=== PATIENT | male | born 1990 | race Caucasian/White ===

== ENCOUNTER 2018-02-02 19:49 | Emergency (ER) | payer SELFPAY ==
--- NOTE | 2018-02-02 22:21 | ED Physician Documentation ---
PD HPI LOWER EXT INJURY - Stated complaint Stated Complaint: L KNEE SWELLING - Chief complaint Chief Complaint: Ext Problem - History obtained from History obtained from: Patient - History of Present Illness PD HPI LOW EXT INJURY LOCATION: Left, Knee Type of injury: Other (had gradual onset and persistence of left knee swelling and tenderness for past 1-2 months. 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 No punctures nor direct wound.). No: Fall, Twist Where injury occurred: Work Timing - onset: How many months ago (1-2) Timing - duration: Months Timing - details: Abrupt onset, Still present Improved by: No: Rest, Ice Worsened by: Moving, Palpating, Other (kneeling) Associated symptoms: Swelling (in front of knee). No: Weakness, Numbness Similar symptoms before: Has not had sx before (had knee pains right knee when teenager, for couple of years.) Recently seen: Not recently seen Review of Systems Constitutional: denies: Fever, Chills, Myalgias Skin: denies: Rash, Lesions, Abrasion (s), Laceration (s) Neurologic: denies: Focal weakness, Numbness PD PAST MEDICAL HISTORY - Past Medical History Cardiovascular: None Respiratory: None Neuro: None Endocrine/Autoimmune: None GI: None : None HEENT: None Psych: None Musculoskeletal: None Derm: None - Past Surgical History Past Surgical History: No - Present Medications Home Medications: Ambulatory Orders Medication Instructions Recorded Confirmed Dexamethasone [Decadron] 4 mg PO DAILY #5 tablet 02/02/18 HYDROcod/ACETAM 5/325 [[place] 5/325] 1 tab PO Q6H PRN #15 tablet 02/02/18 - Allergies Allergies/Adverse Reactions: Allergies Allergy/AdvReac Type Severity Reaction Status Date / Time No Known Drug Allergies Allergy Verified 02/02/18 19:54 - Social History Does the pt smoke?: Yes Smoking Status: Current every day smoker Does the pt drink ETOH?: No Does the pt have substance abuse?: No - Immunizations Immunizations are current?: Yes - POLST Patient has POLST: No PD ED PE NORMAL - Vitals Vital signs reviewed: Yes - General General: Alert and oriented X 3, No acute distress, Well developed/nourished - Derm Derm: Normal color, Warm and dry - Extremities Extremities: No edema, No calf tenderness / cord, Other (left prepatellar/infrapatellar area with focal area of fluid anteriorly. No joint effusion. Knee without pain on ligament stress testing. There is no skin lesion nor redness/warmth in front of knee. exam c/w inflammatory bursitis. Generous b ursal effusion present. ) - Neuro Neuro: Alert and oriented X 3, No motor deficit, No sensory deficit, Normal speech Results - Vitals Vitals: Oxygen O2 Source Room air Procedures - General procedure General procedure: cleansed skin over front of left knee with antiseptic and then local anesth with lido 1% with epi. Then drained bursa of 12 ml of clear fluid using 18g needle. PD MEDICAL DECISION MAKING - ED course Complexity details: considered differential (no redness nor tenderness, but has persistent effusion c/w bursitis inflammatory. I did drain 12 ml of clear fluid from it. ), d/w patient - Sepsis Event Vital Signs: Oxygen O2 Source Room air Departure - Departure Disposition: 01 Home, Self Care Clinical Impression: Prepatellar bursitis Qualifiers: Laterality: left Qualified Code(s): M70.42 - Prepatellar bursitis, left knee Condition: Stable Record reviewed to determine appropriate education?: Yes Instructions: ED Bursitis Follow-Up: [facility] [Provider Group] Prescriptions: Dexamethasone [Decadron] 4 mg PO DAILY #5 tablet HYDROcod/ACETAM 5/325 [[place] 5/325] 1 tab PO Q6H PRN #15 tablet PRN Reason: Pain Comments: Use some ibuprofen or naproxen twice daily at least for the next 7-10 days. Neoprene knee brace or Tom wrap to the area to reduce swelling. Try to minimize kneeling onto the area. Decadron steroid anti-inflammatory daily for 5 days as well. Add Tylenol or hydrocodone if needed for pain. Recheck if not better over the next week or so. Discharge Date/Time: 02/02/18 23:25
[2018-02-02] MEDS ORDERED: DEXAMETHASONE 10 MG/ML VIAL PO STA (22:47)
[2018-02-02] MEDS ORDERED: HYDROcod/ACETAM 5/325 MG TABLET PO STA (22:47)
[2018-02-02 22:59] VITALS: BP 113/76
== END 2018-02-02 23:25 | disposition home or self-care (01) ==
LOC: ED 19:49
DX: M70.42 Prepatellar bursitis, left knee (principal); F17.200 Nicotine dependence, unspecified, uncomplicated
CPT/HCPCS: 27301; 99283; A9270

== ENCOUNTER 2018-09-14 14:59 | Outpatient (CLI) | payer MEDICAID | END 2018-09-14 15:00 | disposition critical access hospital (66) | LOC: EMS 14:59 | PROVIDERS: ATTEND Surgery | DX: S06.9X1A Unspecified intracranial injury with loss of consciousness of 30 minutes or less, initial encounter (principal); M25.552 Pain in left hip; M25.511 Pain in right shoulder; V22.4XXA Motorcycle driver injured in collision with two- or three-wheeled motor vehicle in traffic accident, initial encounter | CPT/HCPCS: A0425; A0427; A0999 ==

== ENCOUNTER 2018-09-14 15:28 | Emergency (ER) | payer MEDICAID ==
[2018-09-14] MEDS ORDERED: SODIUM CHLORIDE 0.9% 1,000 ML IV ONE ×2 (15:32→17:46)
[2018-09-14] MEDS ORDERED: HYDROmorphone 1 MG/ML CARPUJECT IVP STA ×2 (15:32→15:53)
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
[2018-09-14 15:50] LABS: BASOPHILS % (AUTO) 0.2 %; EOSINOPHILS # (AUTO) 0.1 10^3/uL (0.0-0.7); EOSINOPHILS % (AUTO) 0.6 %; HGB - HEMOGLOBIN 15.6 g/dL (14.0-18.0); LYMPHOCYTES # (AUTO) 3.2 10^3/uL (1.5-3.5); LYMPHOCYTES % (AUTO) 15.2 %; MEAN CORPUSCULAR HEMOGLOBIN 28.4 pg (27.0-31.0); MEAN CORPUSCULAR HGB CONC 33.8 g/dL (32.0-36.0); MEAN CORPUSCULAR VOLUME 83.9 fL (80.0-94.0); MEAN PLATELET VOLUME 8.1 fL (7.4-11.4); MONOCYTES # (AUTO) 0.9 10^3/uL (0.0-1.0); MONOCYTES % (AUTO) 4.4 %; NEUTROPHILS # (AUTO) 16.6 10^3/uL (1.5-6.6); NEUTROPHILS % (AUTO) 79.6 %; PLT - PLATELET COUNT 252 10^3/uL (130-450); RED BLOOD COUNT 5.49 10^6/uL (4.70-6.10); RED CELL DISTRIBUTION WIDTH 13.1 % (12.0-15.0); WHITE BLOOD COUNT 20.8 x10^3/uL (4.8-10.8)
[2018-09-14 15:56] LABS: INR 1.1 (0.8-1.2); PT - PROTHROMBIN TIME 12.9 secs (9.9-12.6)
[2018-09-14 16:02] LABS: ALBUMIN 4.4 g/dL (3.2-5.5); ALBUMIN/GLOBULIN RATIO 1.3 (1.0-2.2); ALKALINE PHOSPHATASE 60 IU/L (42-121); ALT ALANINE AMINOTRANSFERASE 44 IU/L (10-60); AST ASPARTATE AMINOTRANSFERASE 50 IU/L (10-42); BILIRUBIN,TOTAL 0.5 mg/dL (0.2-1.0); BUN - BLOOD UREA NITROGEN 15 mg/dL (6-20); CALCIUM 9.5 mg/dL (8.5-10.3); CARBON DIOXIDE - CO2 23 mmol/L (21-32); CHLORIDE 101 mmol/L (101-111); CREATININE 0.9 mg/dL (0.6-1.2); GFR - MDRD 100 (>89); GLUCOSE 111 mg/dL (70-100); LIPASE 36 U/L (22-51); SODIUM 136 mmol/L (135-145); TOTAL PROTEIN 7.8 g/dL (6.7-8.2)
[2018-09-14] MEDS ORDERED: BUPIVACAINE 0.5%-EPI 1:200000 PF 10 ML VIAL SUBQ STA (16:12)
[2018-09-14 16:16] LABS: PLATELET MORPHOLOGY RARE GIANT PLATELETS (NORMAL)
[2018-09-14 16:17] LABS: PLATELET ESTIMATE, MANUAL NORMAL (130-450,000) (NORMAL); RBC MORPHOLOGY (MULTIPLE) NORMAL APPEARANCE (NORMAL)
[2018-09-14] MEDS ORDERED: IOVERSOL 320 100 ML VIAL IVP ONE ×2 (16:18→20:08)
[2018-09-14] MEDS ORDERED: MORPHINE 10 MG/ML VIAL IVP STA ×2 (16:48→17:46)
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
--- NOTE | 2018-09-14 17:19 | XRAY Report ---
Reason: [facility] [place] pelvic pain Procedure Date: 09/14/2018 Accession Number: [id number] / [id number] Procedure: XR - Pelvis 1 View CPT Code: FULL RESULT: EXAM: PELVIS RADIOGRAPHY EXAM DATE: 09/14/2018 04:46 PM. CLINICAL HISTORY: [facility] [place] today with pelvic pain. COMPARISON: ABDOMEN/PELVIS W/ 09/14/2018 4:29 PM. TECHNIQUE: 1 view. FINDINGS: Bones: There is a subcapital left femoral neck fracture. No fractures involving the pelvis. The right hip is unremarkable. Joints: The visualized hip, pubis symphysis, and sacroiliac joints are preserved. No subluxation. Soft Tissues: Normal. No soft tissue swelling. IMPRESSION: Subcapital left femoral neck fracture. RADIA
[2018-09-14] MEDS ORDERED: KETAMINE 500 MG/10 ML VIAL IVP STA ×4 (17:46→19:21)
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
[2018-09-14] MEDS ORDERED: MORPHINE 2 MG/ML SYRINGE IVP STA (19:21)
[2018-09-14] MEDS ORDERED: MORPHINE 2 MG/ML SYRINGE ONE (19:28)
[2018-09-14 19:36] VITALS: BP 117/62
== END 2018-09-14 19:30 | disposition short-term general hospital (02) ==
LOC: EDUNIT# → ED 15:28
DX: S72.012A Unspecified intracapsular fracture of left femur, initial encounter for closed fracture (principal); S42.191A Fracture of other part of scapula, right shoulder, initial encounter for closed fracture; V22.0XXA Motorcycle driver injured in collision with two- or three-wheeled motor vehicle in nontraffic accident, initial encounter; Y93.I9 Activity, other involving external motion; F17.200 Nicotine dependence, unspecified, uncomplicated
CPT/HCPCS: 36415; 70450; 71045; 71260; 72125; 72170; 74177; 80053; 80320; 83690; 85025; 85610; 96374; 96375; 96376; 99285; 99291; J1170; J2270; Q9967

== ENCOUNTER 2018-09-14 19:31 | Outpatient (CLI) | payer MEDICAID | END 2018-09-14 19:32 | disposition short-term general hospital (02) | LOC: EMS 19:31 | PROVIDERS: ATTEND Surgery | DX: S72.92XA Unspecified fracture of left femur, initial encounter for closed fracture (principal); S42.101A Fracture of unspecified part of scapula, right shoulder, initial encounter for closed fracture; V22.4XXA Motorcycle driver injured in collision with two- or three-wheeled motor vehicle in traffic accident, initial encounter | CPT/HCPCS: A0425; A0426; A0999 ==

== ENCOUNTER 2018-09-28 19:28 | Emergency (ER) | payer MEDICAID ==
[2018-09-28] MEDS ORDERED: HYDROmorphone 2 MG TABLET PO STA (19:55)
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
[2018-09-28] MEDS ORDERED: oxyCODONE/ACET 5/325 Prepack 4 PO STA (21:24)
[2018-09-28 21:25] VITALS: BP 113/59
--- NOTE | 2018-09-28 23:51 | Ultrasound Report ---
Reason: LLE pain, known DVT Procedure Date: 09/28/2018 Accession Number: [id number] / [id number] Procedure: US - Duplex Ext Veins Left CPT Code: FULL RESULT: EXAM: LEFT LOWER EXTREMITY VENOUS ULTRASOUND. EXAM DATE: 09/28/2018 08:43 PM. CLINICAL HISTORY: Left lower extremity pain, known deep vein thrombosis. COMPARISON: 09/24/2018 [facility] ultrasound report. TECHNIQUE: Real-time sonographic vascular imaging was performed by the water pipe installer through the lower extremity utilizing both color-flow and Doppler spectral analysis. Multiple desk representative static images were saved for review. FINDINGS: Common Femoral Vein (CFV): Normal. CFV-GSV Junction: Normal. Profunda Femoral Vein (PFV): Normal. Femoral Vein (FV) Prox: Normal. Femoral Vein (FV) Mid: Normal. Femoral Vein (FV) Dist: Normal. Popliteal Vein: Normal. Posterior Tibial Veins: Normal. Peroneal Veins: Normal. Contralateral Side CFV: Normal. Other: Previously reported soleal vein thrombus not definitely visualized. A single posterior tibial embedded systems software developer was visualized and is patent. IMPRESSION: 1. Previously described soleal vein thrombus not visualized. A single visualized posterior tibial perforating vein however is patent. 2. Otherwise negative exam demonstrating no evidence of clot propagation. RADIA
== END 2018-09-28 21:47 | disposition home or self-care (01) ==
LOC: ED 19:28
DX: G89.11 Acute pain due to trauma (principal); S72.002D Fracture of unspecified part of neck of left femur, subsequent encounter for closed fracture with routine healing; V29.9XXD Motorcycle rider (driver) (passenger) injured in unspecified traffic accident, subsequent encounter; F11.23 Opioid dependence with withdrawal; Z86.718 Personal history of other venous thrombosis and embolism; Z79.01 Long term (current) use of anticoagulants; F17.200 Nicotine dependence, unspecified, uncomplicated
CPT/HCPCS: 93971; 99283; A9270

== ENCOUNTER 2020-02-14 11:55 | Emergency (ER) | payer MEDICAID ==
[2020-02-14 12:41] LABS: BASOPHILS # (AUTO) 0.1 10^3/uL (0.0-0.1); BASOPHILS % (AUTO) 0.9 %; EOSINOPHILS # (AUTO) 0.3 10^3/uL (0.0-0.7); EOSINOPHILS % (AUTO) 2.9 %; HGB - HEMOGLOBIN 14.9 g/dL (14.0-18.0); LYMPHOCYTES # (AUTO) 3.4 10^3/uL (1.5-3.5); LYMPHOCYTES % (AUTO) 35.7 %; MEAN CORPUSCULAR HEMOGLOBIN 29.3 pg (27.0-31.0); MEAN CORPUSCULAR HGB CONC 33.6 g/dL (32.0-36.0); MEAN CORPUSCULAR VOLUME 87.4 fL (80.0-94.0); MEAN PLATELET VOLUME 9.6 fL (7.4-11.4); MONOCYTES # (AUTO) 0.6 10^3/uL (0.0-1.0); MONOCYTES % (AUTO) 6.4 %; NEUTROPHILS # (AUTO) 5.1 10^3/uL (1.5-6.6); NEUTROPHILS % (AUTO) 53.8 %; PLT - PLATELET COUNT 221 10^3/uL (130-450); RED BLOOD COUNT 5.08 10^6/uL (4.70-6.10); RED CELL DISTRIBUTION WIDTH 12.8 % (12.0-15.0); WHITE BLOOD COUNT 9.5 x10^3/uL (4.8-10.8)
--- NOTE | 2020-02-14 14:01 | ED Physician Documentation ---
PD HPI GI BLEED - Stated complaint Stated Complaint: BLOOD IN STOOL - Chief complaint Chief Complaint: Abd Pain - History obtained from History obtained from: Patient - History of Present Illness Timing - onset: Today Timing - duration: Days (1) Timing - details: Abrupt onset Pain level max: 0 Pain level now: 0 Associated symptoms: BRBPR (x2) Contributing factors: No: Sick contact, Bad food, Travel, Recent antibiotics, Alcohol use, Aspirin use, NSAID use, Stress, Anticoagulated, Diabetes Improved by: Other (nothing) Worsened by: Other (nothing) Recently seen: Not recently seen - Additional information Additional information: No abdominal pain. No rectal pain. No trauma. No recent antibiotics. No diarrhea. No constipation. Review of Systems Constitutional: denies: Fever, Chills Respiratory: denies: Cough GI: denies: Nausea, Vomiting, Diarrhea, Hematemesis Skin: denies: Rash Musculoskeletal: denies: Neck pain, Back pain Neurologic: denies: Headache PD PAST MEDICAL HISTORY - Past Medical History Cardiovascular: None Respiratory: None Neuro: None Endocrine/Autoimmune: None GI: None : None HEENT: None Psych: None Musculoskeletal: None Derm: None - Past Surgical History Past Surgical History: No Ortho: Other - Allergies Allergies/Adverse Reactions: Allergies Allergy/AdvReac Type Severity Reaction Status Date / Time No Known Drug Allergies Allergy Verified 09/28/18 19:38 - Social History Does the pt smoke?: Yes Smoking Status: Current every day smoker Does the pt drink ETOH?: No Does the pt have substance abuse?: No Substance Use and Type: Marijuana - Immunizations Immunizations are current?: Yes - POLST Patient has POLST: No PD ED PE NORMAL - Vitals Vital signs reviewed: Yes - General General: Alert and oriented X 3, No acute distress - HEENT HEENT: Moist mucous membranes - Neck Neck: Supple, no meningeal sign - Cardiac Cardiac: RRR - Respiratory Respiratory: No respiratory distress, Clear bilaterally - Abdomen Abdomen: Soft, Non tender, Non distended - Rectal Rectal: Other (normal exam) - Derm Derm: Warm and dry - Neuro Neuro: Alert and oriented X 3 - Psych Psych: Normal mood, Normal affect Results - Vitals Vitals: Vital Signs - 24 hr 02/14/20 02/14/20 12:11 14:01 Temperature 36.8 C 36.7 C Heart Rate 70 60 Respiratory 16 19 Rate Blood Pressure 121/75 124/82 H O2 Saturation 100 98 Oxygen O2 Source Room air - Labs Labs: Microbiology 02/14/20 13:50 Occult Blood - Final Stool Laboratory Tests 02/14/20 02/14/20 02/14/20 12:27 12:27 12:27 WBC 9.5 RBC 5.08 Hgb 14.9 Hct 44.4 MCV 87.4 MCH 29.3 MCHC 33.6 RDW 12.8 Plt Count 221 MPV 9.6 Neut # (Auto) 5.1 Lymph # (Auto) 3.4 [place] # (Auto) 0.6 Eos # (Auto) 0.3 Baso # (Auto) 0.1 Absolute Nucleated RBC 0.00 Nucleated RBC % 0.0 PT 12.1 INR 1.1 APTT 27.6 Sodium 137 Potassium 3.8 Chloride 102 Carbon Dioxide 26 Anion Gap 9.0 BUN 10 Creatinine 0.8 Estimated GFR (MDRD) 114 Glucose 99 Calcium 9.3 Total Bilirubin 0.5 AST 21 ALT 18 Alkaline Phosphatase 59 Total Protein 7.4 Albumin 4.3 Globulin 3.1 Albumin/Globulin Ratio 1.4 Lipase 33 PD MEDICAL DECISION MAKING - ED course Complexity details: reviewed results, re-evaluated patient, considered differential, d/w patient ED course: Patient with stable hematochezia. Normal rectal exam. Positive Hemoccult. Normal laboratory values. He states he does have a primary care doctor and can follow-up with them. No family history of ulcerative colitis or Crohn's disease. No abdominal pain. No evidence of diverticulitis. No fever. No vomiting. No diarrhea. No constipation. Patient counseled regarding signs and symptoms for which I believe and urgent re-evaluation would be necessary. Patient with good understanding of and agreement to plan and is comfortable going home at this time This document was made in part using voice recognition software. While efforts are made to proofread this document, sound alike and grammatical errors may occur. Departure - Departure Disposition: 01 Home, Self Care Clinical Impression: Hematochezia Condition: Good Instructions: ED Hematochezia Stable Follow-Up: your,doctor in 1 week [Other] [facility] [Provider Group] [facility] [Provider Group] Comments: Your blood work does not show any acute abnormalities today. Your rectal exam is normal as well. This may be due to an internal hemorrhoid. You should follow-up with your doctor to schedule a colonoscopy. If you do not have a doctor, you can call 1 of the clinics listed above for follow-up. Return if you worsen. Discharge Date/Time: 02/14/20 15:18
[2020-02-14 14:02] VITALS: BP 124/82
[2020-02-14 14:25] LABS: INR 1.1 (0.8-1.2); PT - PROTHROMBIN TIME 12.1 secs (9.9-12.6)
[2020-02-14 14:32] LABS: PARTIAL THROMBOPLASTIN TIME 27.6 secs (24.9-33.3)
[2020-02-14 15:27] LABS: ALBUMIN 4.3 g/dL (3.2-5.5); ALBUMIN/GLOBULIN RATIO 1.4 (1.0-2.2); BILIRUBIN,TOTAL 0.5 mg/dL (0.2-1.0); CALCIUM 9.3 mg/dL (8.5-10.3); CREATININE 0.8 mg/dL (0.6-1.2); TOTAL PROTEIN 7.4 g/dL (6.7-8.2)
== END 2020-02-14 15:18 | disposition home or self-care (01) ==
LOC: ED 11:55
DX: K92.1 Melena (principal); F17.200 Nicotine dependence, unspecified, uncomplicated
CPT/HCPCS: 36415; 80053; 82272; 83690; 85025; 85610; 85730; 99283; 99284

== ENCOUNTER 2020-04-13 10:30 | Emergency (ER) | payer MEDICAID ==
[2020-04-13] MEDS ORDERED: methocarbamoL 500 MG TABLET PO STA (11:16)
[2020-04-13] MEDS ORDERED: MELOXICAM 7.5 MG TABLET PO STA (11:16)
--- NOTE | 2020-04-13 11:27 | ED Physician Documentation ---
PD HPI BACK PAIN - Stated complaint Stated Complaint: BACK PX - Chief complaint Chief Complaint: General - History obtained from History obtained from: Patient - History of Present Illness Timing - onset: How many days ago (3) Timing - duration: Days (3) Timing - details: Gradual onset Pain level max: 8 Pain level now: 8 Location: Mid Quality: Pain, Spasm, Similar to prior episodes Associated symptoms: No: Fever, Weakness, Numbness, Incontinent of urine, Unable to urinate, Hematuria, Incontinent of stool Improves with: Rest, Other (took methadone this morning.) Worsened by: Movement Contributing factors: Lifting, Twisting. No: Trauma, Anticoagulated, Cancer, IVDA Recently seen: Not recently seen Review of Systems Constitutional: denies: Fever, Chills Cardiac: denies: Chest pain / pressure Respiratory: denies: Cough GI: denies: Vomiting, Diarrhea Skin: denies: Rash Musculoskeletal: denies: Neck pain Neurologic: denies: Focal weakness, Numbness, Headache PD PAST MEDICAL HISTORY - Past Medical History Cardiovascular: None Respiratory: None Neuro: None Endocrine/Autoimmune: None GI: None : None HEENT: None Psych: None Musculoskeletal: None Derm: None - Past Surgical History Past Surgical History: No Ortho: Other - Present Medications Home Medications: Ambulatory Orders Medication Instructions Recorded Confirmed Buprenorphine HCl/Naloxone HCl 1 DAILY 04/13/20 [Suboxone 8 mg-2 mg Sl Film] Meloxicam [Mobic] 7.5 mg PO BID PRN #20 tablet 04/13/20 methocarbamoL [Robaxin] 500 mg PO Q6H PRN #14 tablet 04/13/20 - Allergies Allergies/Adverse Reactions: Allergies Allergy/AdvReac Type Severity Reaction Status Date / Time No Known Drug Allergies Allergy Verified 04/13/20 10:41 - Social History Does the pt smoke?: Yes Smoking Status: Current every day smoker Does the pt drink ETOH?: No Does the pt have substance abuse?: No - Immunizations Immunizations are current?: Yes - POLST Patient has POLST: No PD ED PE NORMAL - Vitals Vital signs reviewed: Yes - General General: Alert and oriented X 3, No acute distress - HEENT HEENT: Moist mucous membranes - Neck Neck: Supple, no meningeal sign - Cardiac Cardiac: RRR - Respiratory Respiratory: No respiratory distress, Clear bilaterally - Abdomen Abdomen: Soft, Non tender, Non distended - Back Back: No spinal TTP, Other (Mild paraspinal spasm present bilaterally, mid thora cic to mid lumbar. No midline tenderness to palpation or percussion.) - Derm Derm: Warm and dry - Extremities Extremities: No edema, No calf tenderness / cord, Other (Normal bilateral lower extremity patellar and ankle jerk reflexes. Normal great toe extension bilaterally. no saddle anesthesia) - Neuro Neuro: Alert and oriented X 3 - Psych Psych: Normal mood, Normal affect Results - Vitals Vitals: Vital Signs - 24 hr 04/13/20 04/13/20 10:37 11:33 Temperature 36.5 C 36.5 C Heart Rate 68 51 L Respiratory 16 18 Rate Blood Pressure 115/68 113/71 O2 Saturation 98 99 Oxygen O2 Source Room air PD MEDICAL DECISION MAKING - ED course Complexity details: considered differential (No cauda equina, no spinal epidural abscess, no fracture, no aortic dissection or evidence of aneursym rupture), d/w patient ED course: Patient with what appears to be back spasm. He works construction. No midline tenderness to palpation or percussion. No neurological deficits. We will place him on muscle relaxants and NSAIDs for home. Patient counseled regarding signs and symptoms for which I believe and urgent re-evaluation would be necessary. Patient with good understanding of and agreement to plan and is comfortable going home at this time This document was made in part using voice recognition software. While efforts are made to proofread this document, sound alike and grammatical errors may occur. Departure - Departure Disposition: 01 Home, Self Care Clinical Impression: Back spasm Condition: Good Instructions: ED Spasm Back No Trauma Follow-Up: your,doctor in 1 week [Other] Prescriptions: Meloxicam [Mobic] 7.5 mg PO BID PRN #20 tablet PRN Reason: Pain methocarbamoL [Robaxin] 500 mg PO Q6H PRN #14 tablet PRN Reason: back spasm Comments: Follow-up with your doctor for further care. Continue gentle stretching at home. We will place you on muscle relaxants and anti-inflammatories. This should improve over the next few days. Do not drive or operate heavy machinery while taking the Robaxin
[2020-04-13 11:34] VITALS: BP 113/71
== END 2020-04-13 11:36 | disposition home or self-care (01) ==
LOC: ED 10:30
DX: M62.830 Muscle spasm of back (principal); M54.6 Pain in thoracic spine; M54.5 Low back pain; F17.200 Nicotine dependence, unspecified, uncomplicated
CPT/HCPCS: 99282; 99284; A9270